=== PATIENT | male | born 1985 | race Caucasian/White ===

== ENCOUNTER 2020-06-08 00:56 | Inpatient (IN) ==
[2020-06-08 02:06] LABS: Appearance Urine Clear (Clear); Bilirubin Urine Negative (Negative); Blood Urine Negative (Negative); Color Urine Yellow; Glucose Urine UA Negative (Negative); Ketones Urine Negative (Negative); Leukocyte Esterase Urine Negative (Negative); Nitrite Urine Negative (Negative); Protein Urine Negative (Negative); Specific Gravity Urine <= 1.005 (1.000-1.030); Urobilinogen Urine Negative (Negative); pH Urine 5.5 (4.5-7.5)
[2020-06-08 02:14] LABS: Basophils # (auto) 0.02 K/uL (0-0.2); Basophils % (auto) 0.3 %; Eosinophils # (auto) 0.12 K/uL (0-0.5); Eosinophils % (auto) 1.6 %; Hematocrit (blood only) 43.9 % (42-52); Hemoglobin 15.1 g/dL (14.0-18.0); Immature Granulocytes # (auto) 0.01 K/uL (0.00-0.02); Immature Granulocytes % (auto) 0.1 %; Lymphocytes # (auto) 3.13 K/uL (1.2-3.4); Lymphocytes % (auto) 42.8 %; Mean Corpuscular Hemoglobin 32.6 pg (25-34); Mean Corpuscular Hgb Conc 34.4 g/dL (32-36); Mean Corpuscular Volume 94.8 fL (80-100); Mean Platelet Volume 8.7 fL (7.4-10.4); Monocytes # (auto) 0.86 K/uL (0.11-0.59); Monocytes % (auto) 11.7 %; Neutrophils # (auto) 3.18 K/uL (1.4-6.5); Neutrophils % (auto) 43.5 %; Platelet Count 263 K/uL (130-400); RDW Coefficient of Variation 14.2 % (11.5-14.5); RDW Standard Deviation 48.8 fL (36.4-46.3); Red Blood Count 4.63 M/uL (4.7-6.1); White Blood Count 7.32 K/uL (4.8-10.8)
--- NOTE | 2020-06-08 02:21 | Emergency Department Note ---
Impression & Plan Suicide attempt, Drug overdose, intentional, Alcohol intoxication ED Provider Note NAME: NAOMI CHAVEZ AGE: 35 SEX: M ARRIVES VIA: Ambulance INFORMANT: Patient ED PROVIDER(S): Zoraida Waters DO CHIEF COMPLAINT: Suicide attempt PLAN: Disposition: The case was signed out to Dr. Potts at change of shift awaiting evaluation by the ED psychiatric nurse outreach case manager Condition: Good MEDICAL DECISION MAKING: This is a 35-year-old male patient who presents to the emergency department after taking an overdose in an attempt to harm himself. 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 He drank a large amount of vodka took a handful of Benadryl along with his usual dose of Ativan in an effort to kill himself. The patient's alcohol level was greater than 200. Observation began at 0105 and was necessary in order for the patient to become more sober and to preclude an unnecessary admission. Upon reevaluation, observation revealed that the patient was more sober and could be evaluated from a psychiatric standpoint. He has a past medical history of HTN, Patient was discharged from observation at 645. Triage Nursing notes reviewed and agree them. Vital Signs: reviewed and remarkable for tachycardia Differential diagnosis: Alcohol intoxication, mood disorder, suicide attempt, alcoholism Laboratory studies: See below HPI: 35/M arrives for evaluation of suicide attempt. This is a 35-year-old male patient with a history of alcohol abuse and previous suicide attempts who presents to the emergency department after taking a handful of Benadryl after drinking a large amount of alcohol in an effort to hurt himself. Patient admits that he had a fight with his girlfriend vida and was feeling suicidal. ROS: See above HPI for pertinent positives & negatives. A total of 10 systems reviewed and were otherwise negative. 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 Extraocular eye muscles are intact, and sclera are anicteric. Nose - moist nasal mucosa without discharge. Mouth - moist buccal mucosa. Oropharynx is nonerythematous and there is no tonsillar exudate or edema noted. Neck: Supple; no JVD, nuchal rigidity, cervical lymphadenopathy, or auscultated bruits. Heart: Tachycardic rate and rhythm. There is a normal S1 and S2 with no murmurs, clicks, or gallops appreciated. Lungs: Clear to auscultation bilaterally with no wheezes, rales, or rhonchi. Abdomen: Soft, completely nontender, nondistended, with good bowel sounds. There are no palpable pulsatile masses or hepatosplenomegaly. There is no guarding, rigidity, or rebound noted. Extremities: No evidence of cyanosis, clubbing, or edema. There are easily palpable peripheral pulses. Skin: warm and dry with good turgor and no rashes. Psych: The patient admits to drinking a large amount of alcohol and taking an overdose of Benadryl in an effort to kill himself. He admits to previous suicide attempts. ED COURSE: Times/Reassessments: 0105: Patient was evaluated in room A2. 0240: I reevaluated the patient at this time and he was up to the bathroom. I explained to him that his blood alcohol level was quite elevated and that he would need to sober up some before he could be evaluated by the ED psychiatric nurse outreach case manager. 0505: The patient was sound asleep at this time and is hemodynamically stable 0645: Patient was reevaluated at this time. He is awake and appears more sober. Zoraida Waters DO Past Med/Surg History Social History Smoking Status: Current every day smoker Allergies Allergies Allergy/AdvReac Type Severity Reaction Status Date / Time No Known Allergies Allergy Unverified 06/08/20 01:34 Home Meds Home Medications Medication Instructions Recorded Confirmed citalopram [Celexa] 10 mg PO DAILY 06/08/20 06/08/20 lorazepam [Ativan] 0.5 mg PO DAILY 06/08/20 06/08/20 Results & Data (ED) Vital Signs Vital Signs - 24 hr 06/08/20 01:07 06/08/20 01:30 06/08/20 02:44 Temperature 36.7 C Temperature Source Oral Pulse Rate 96 H 92 H 98 H Pulse Rate [Left Finger] Pulse Rate from SpO2 Sensor 92 H Pulse Rhythm [Left Finger] Pulse Strength [Left Finger] Respiratory Rate 16 16 15 Respiratory Effort / Characteristics Non-Labored Respiratory Depth Normal Respiratory Pattern Regular Blood Pressure 154/95 H 124/86 Blood Pressure [Left Arm] Blood Pressure Mean 114 96 Blood Pressure Mean [Left Arm] Blood Pressure Position [Left Arm] Pulse Oximetry 98 98 Oxygen Delivery Method Room Air Room Air Sepsis Recent Fever Within 48 Hours No Sepsis New/Unexplained Change in Mental Status No Sepsis Action Taken by Nursing No Action Required 06/08/20 03:00 06/08/20 03:01 06/08/20 03:30 Temperature Temperature Source Pulse Rate 89 91 H 93 H Pulse Rate [Left Finger] Pulse Rate from SpO2 Sensor Pulse Rhythm [Left Finger] Pulse Strength [Left Finger] Respiratory Rate 16 14 14 Respiratory Effort / Characteristics Respiratory Depth Respiratory Pattern Blood Pressure 112/80 103/70 Blood Pressure [Left Arm] Blood Pressure Mean 87 75 Blood Pressure Mean [Left Arm] Blood Pressure Position [Left Arm] Pulse Oximetry Oxygen Delivery Method Sepsis Recent Fever Within 48 Hours Sepsis New/Unexplained Change in Mental Status Sepsis Action Taken by Nursing 06/08/20 03:31 06/08/20 06:19 Temperature Temperature Source Pulse Rate 93 H Pulse Rate [Left Finger] 87 Pulse Rate from SpO2 Sensor Pulse Rhythm [Left Finger] Regular Pulse Strength [Left Finger] Normal Respiratory Rate 14 18 Respiratory Effort / Characteristics Non-Labored Respiratory Depth Normal Respiratory Pattern Regular Blood Pressure Blood Pressure [Left Arm] 101/59 L Blood Pressure Mean Blood Pressure Mean [Left Arm] 73 Blood Pressure Position [Left Arm] Lying Pulse Oximetry 96 Oxygen Delivery Method Room Air Sepsis Recent Fever Within 48 Hours Sepsis New/Unexplained Change in Mental Status Sepsis Action Taken by Nursing Laboratory Data Result diagrams: 06/08/20 02:01 06/08/20 02:01 Lab Results 06/08/20 06/08/20 06/08/20 Range/Units 01:00 01:00 02:01 WBC 7.32 (4.8-10.8) K/uL RBC 4.63 L (4.7-6.1) M/uL Hgb 15.1 (14.0-18.0) g/dL Hct 43.9 (42-52) % MCV 94.8 (80-100) fL MCH 32.6 (25-34) pg MCHC 34.4 (32-36) g/dL RDW Std Deviation 48.8 H (36.4-46.3) fL RDW Coeff of Ele 14.2 (11.5-14.5) % Plt Count 263 (130-400) K/uL MPV 8.7 (7.4-10.4) fL Immature Gran % (Auto) 0.1 % Neut % (Auto) 43.5 % Lymph % (Auto) 42.8 % [place] % (Auto) 11.7 % Eos % (Auto) 1.6 % Baso % (Auto) 0.3 % Neut # (Auto) 3.18 (1.4-6.5) K/uL Lymph # (Auto) 3.13 (1.2-3.4) K/uL [place] # (Auto) 0.86 H (0.11-0.59) K/uL Eos # (Auto) 0.12 (0-0.5) K/uL Baso # (Auto) 0.02 (0-0.2) K/uL Immature Gran # (Auto) 0.01 (0.00-0.02) K/uL Sodium (136-145) mmol/L Potassium (3.5-5.1) mmol/L Chloride (98-107) mmol/L Carbon Dioxide (21-32) mmol/L Anion Gap (3-11) BUN (7-18) mg/dl Creatinine (0.6-1.4) mg/dl Est Cr Clr Drug Dosing ml/min Est GFR ( Amer) Est GFR (Non-Af Amer) BUN/Creatinine Ratio (10-20) Glucose (70-99) mg/dl Calcium (8.5-10.1) mg/dl Total Bilirubin (0.2-1) mg/dl AST (15-37) U/L ALT (12-78) U/L Alkaline Phosphatase (45-117) U/L Total Protein (6.4-8.2) gm/dl Albumin (3.4-5.0) gm/dl Globulin (2.5-4.0) gm/dl Albumin/Globulin Ratio (0.9-2) TSH (0.300-4.500) uIu/ml Urine Color Yellow Urine Appearance Clear (Clear) Urine pH 5.5 (4.5-7.5) Ur Specific [place] <= 1.005 (1.000-1.030) Urine Protein Negative (Negative) Urine Glucose (UA) Negative (Negative) Urine Ketones Negative (Negative) Urine Blood Negative (Negative) Urine Nitrite Negative (Negative) Urine Bilirubin Negative (Negative) Urine Urobilinogen Negative (Negative) Ur Leukocyte Esterase Negative (Negative) Salicylates (2.8-20) mg/dl Urine Opiates Screen Neg (Neg) Ur Methadone, Qual Neg (Neg) Acetaminophen (10-30) ug/ml Urine Barbiturates Neg (Neg) Ur Phencyclidine (PCP) Neg (Neg) U Amphetamin/Meth Scrn Neg (Neg) MDMA (Ecstasy) Screen Neg (Neg) U Benzodiazepines Scrn Neg (Neg) Ur Cocaine Metabolite Neg (Neg) U Marijuana (THC) Screen Neg (Neg) Ethyl Alcohol mg/dL (0-3) mg/dl 06/08/20 06/08/20 06/08/20 Range/Units 02:01 02:01 02:01 WBC (4.8-10.8) K/uL RBC (4.7-6.1) M/uL Hgb (14.0-18.0) g/dL Hct (42-52) % MCV (80-100) fL MCH (25-34) pg MCHC (32-36) g/dL RDW Std Deviation (36.4-46.3) fL RDW Coeff of Ele (11.5-14.5) % Plt Count (130-400) K/uL MPV (7.4-10.4) fL Immature Gran % (Auto) % Neut % (Auto) % Lymph % (Auto) % [place] % (Auto) % Eos % (Auto) % Baso % (Auto) % Neut # (Auto) (1.4-6.5) K/uL Lymph # (Auto) (1.2-3.4) K/uL [place] # (Auto) (0.11-0.59) K/uL Eos # (Auto) (0-0.5) K/uL Baso # (Auto) (0-0.2) K/uL Immature Gran # (Auto) (0.00-0.02) K/uL Sodium 142 (136-145) mmol/L Potassium 3.8 (3.5-5.1) mmol/L Chloride 109 H (98-107) mmol/L Carbon Dioxide 28 (21-32) mmol/L Anion Gap 5.0 (3-11) BUN 8 (7-18) mg/dl Creatinine 0.88 (0.6-1.4) mg/dl Est Cr Clr Drug Dosing 108.5 ml/min Est GFR ( Amer) 128.1 Est GFR (Non-Af Amer) 110.5 BUN/Creatinine Ratio 9.2 L (10-20) Glucose 89 (70-99) mg/dl Calcium 8.7 (8.5-10.1) mg/dl Total Bilirubin 0.2 (0.2-1) mg/dl AST 27 (15-37) U/L ALT 44 (12-78) U/L Alkaline Phosphatase 75 (45-117) U/L Total Protein 8.2 (6.4-8.2) gm/dl Albumin 3.7 (3.4-5.0) gm/dl Globulin 4.5 H (2.5-4.0) gm/dl Albumin/Globulin Ratio 0.8 L (0.9-2) TSH 2.510 (0.300-4.500) uIu/ml Urine Color Urine Appearance (Clear) Urine pH (4.5-7.5) Ur Specific [place] (1.000-1.030) Urine Protein (Negative) Urine Glucose (UA) (Negative) Urine Ketones (Negative) Urine Blood (Negative) Urine Nitrite (Negative) Urine Bilirubin (Negative) Urine Urobilinogen (Negative) Ur Leukocyte Esterase (Negative) Salicylates 4.6 (2.8-20) mg/dl Urine Opiates Screen (Neg) Ur Methadone, Qual (Neg) Acetaminophen < 2 L (10-30) ug/ml Urine Barbiturates (Neg) Ur Phencyclidine (PCP) (Neg) U Amphetamin/Meth Scrn (Neg) MDMA (Ecstasy) Screen (Neg) U Benzodiazepines Scrn (Neg) Ur Cocaine Metabolite (Neg) U Marijuana (THC) Screen (Neg) Ethyl Alcohol mg/dL 234.0 H (0-3) mg/dl Discharge Plan Visit Data Chief Complaint: Overdose (Intentional) Stated Complaint: OVERDOSE ED Provider: Zoraida Waters Discharge Problem: Suicide attempt, Drug overdose, intentional, Alcohol intoxication Forms Stand Alone Forms: My [facility], Suicide Prevention Resources Prescriptions Prescriptions: No Action citalopram [Celexa] 10 mg Tablet 10 mg PO DAILY RF: 0 lorazepam [Ativan] 0.5 mg Tablet 0.5 mg PO DAILY RF: 0 Discharge Problem: Drug overdose, intentional Qualifiers: Encounter type: initial encounter Qualified Code(s): T50.902A - Poisoning by unspecified drugs, medicaments and biological substances, intentional self-harm, initial encounter Alcohol intoxication Qualifiers: Complication of substance-induced condition: uncomplicated Qualified Code(s): F10.920 - Alcohol use, unspecified with intoxication, uncomplicated
[2020-06-08 02:26] LABS: Amphetamines+Metham, Urine Neg (Neg); Barbiturates, Urine Neg (Neg); Benzodiazepine, Urine Neg (Neg); Cocaine, Urine Neg (Neg); MDMA (Ecstacy), Urine Neg (Neg); Methadone, Urine Neg (Neg); Opiate, Urine Neg (Neg); Phencyclidine, Urine Neg (Neg)
[2020-06-08 02:35] LABS: Albumin Level 3.7 gm/dl (3.4-5.0); BUN Creatinine Ratio 9.2 (10-20); Calcium 8.7 mg/dl (8.5-10.1); Creatinine Clr Calc Pharmacy 108.5 ml/min; Est GFR (African American) 128.1; Est GFR (Non-African American) 110.5; Potassium 3.8 mmol/L (3.5-5.1)
[2020-06-08 02:46] LABS: Albumin Globulin Ratio 0.8 (0.9-2); Bilirubin,Total 0.2 mg/dl (0.2-1); Globulin 4.5 gm/dl (2.5-4.0); Thyroid Stimulating Hormone 2.51 uIu/ml (0.300-4.500); Total Protein 8.2 gm/dl (6.4-8.2)
[2020-06-08 02:52] LABS: Acetaminophen < 2 ug/ml (10-30); Salicylate 4.6 mg/dl (2.8-20)
[2020-06-08] MEDS: CITALOPRAM 20 MG TAB PO SCH (08:32)
[2020-06-08] MEDS ORDERED: MAGNESIUM HYDROXIDE SUSP 30 ML UDC PO PRN (09:57)
[2020-06-08] MEDS ORDERED: BISMUTH SUBSALICYLATE PER ML OMNICELL CHARGE PO PRN (09:57)
[2020-06-08] MEDS ORDERED: ACETAMINOPHEN 325 MG TAB PO PRN (09:57)
[2020-06-08] MEDS ORDERED: ALUMINUM/MAGNESIUM SUSP 30 ML UDC PO PRN (09:57)
[2020-06-08] MEDS ORDERED: SODIUM CHLORIDE 0.65% NA SOLN 45 ML (OCEAN) PRN (09:57)
--- NOTE | 2020-06-08 10:10 | Emergency Department Note ---
ED Visit Note The patient was signed out to me as a voluntary admission to the mental health unit. The patient was accepted at 3 S. here in the hospital. No issues during his morning stay here in the ED. . : Drug overdose, intentional Qualifiers: Encounter type: initial encounter Qualified Code(s): T50.902A - Poisoning by unspecified drugs, medicaments and biological substances, intentional self-harm, initial encounter Alcohol intoxication Qualifiers: Complication of substance-induced condition: uncomplicated Qualified Code(s): F10.920 - Alcohol use, unspecified with intoxication, uncomplicated
[2020-06-08] MEDS: NICOTINE 21 MG/24 HR TDSY TD SCH (12:02)
--- NOTE | 2020-06-08 12:37 | Electrocardiogram Report ---
Test Reason : Blood Pressure : / mmHG Vent. Rate : 091 BPM Atrial Rate : 091 BPM P-R Int : 134 ms QRS Dur : 084 ms QT Int : 342 ms P-R-T Axes : 066 062 045 degrees QTc Int : 420 ms Normal sinus rhythm with sinus arrhythmia Normal ECG No previous ECGs available Confirmed by Kenyon Greenfield ([id number]) on 06/08/2020 12:36:59 PM Referred By: REFERRED SELF Confirmed By:Kenyon Greenfield
[2020-06-08] MEDS: NICOTINE POLACRILEX 2 MG GUM MT PRN ×2 (17:24→21:10)
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
[2020-06-09] MEDS: CITALOPRAM 20 MG TAB PO SCH (09:05)
[2020-06-09] MEDS: NICOTINE 21 MG/24 HR TDSY TD SCH (09:06)
[2020-06-09] MEDS: NICOTINE POLACRILEX 2 MG GUM MT PRN ×4 (09:10→19:50)
[2020-06-09] MEDS ORDERED: CITALOPRAM 20 MG TAB PO ONE (12:15)
[2020-06-09] MEDS: LORazepam 1 MG TAB PO PRN (13:58)
[2020-06-10] MEDS ORDERED: CITALOPRAM 20 MG TAB PO SCH (09:00)
[2020-06-10] MEDS: NICOTINE POLACRILEX 2 MG GUM MT PRN ×5 (09:06→21:51)
[2020-06-10] MEDS: NICOTINE 21 MG/24 HR TDSY TD SCH (09:07)
[2020-06-10] MEDS: LORazepam 1 MG TAB PO PRN (13:09)
--- NOTE | 2020-06-10 14:29 | Psychiatric Progress Note ---
Date of Service June 10, 2020 Impression / Recommendations Impression 35-year-old male with a history of alcoholism, depression, and anxiety who presents after a suicide attempt by overdose on Benadryl while intoxicated, after an argument with his girlfriend. He was recently fired from his job, and has been drinking daily and heavily for months. He rees a history of alcohol withdrawal and rehab several years ago, but only maintain sobriety for a few months. Collateral information from his girlfriend will be important, as he is not a reliable historian and has given inconsistent report. Inpatient treatment is medically necessary due to the severity of symptoms and risk for suicide if discharged. (1) Depression: 06/09 -patient reports that mood symptoms were actually improving prior to the fight with his girlfriend, but will get collateral from her to better understand recent moods. -Increase citalopram to target mood and anxiety symptoms as below. -Coordinate care with Dr. Rodriguez at [facility]; called his clinic to provide information regarding circumstances of patient's admission and discontinuation of Ativan prescription given alcoholism, and will send records. 06/10 - Will titrate citalopram to 30mg tomorrow morning, as patient is tolerating the medication - Aftercare appointments arranged with [facility] for therapy - Potentially difficult family meeting tomorrow with girlfriend - patient is unsure if she will want to continue the relationship - Continue to encourage participation in group and recreational programming (2) Anxiety: 06/09 -endorses symptoms consistent with generalized anxiety disorder and driving phobia. Increase citalopram to 20 mg daily as patient reports ongoing daily anxiety, and titrate to an effective dose. -Recommend outpatient therapy. -Offer hydroxyzine as needed while here. Avoid use of controlled substances given the high risk of abuse/misuse/negative outcomes. 06/10 - Pt requested information regarding recommendations for use of lorazepam on discharge. Explanation provided that while we are using the medication to manage withdrawal symptoms, it is not likely we will recommend use on discharge. - Explained recommendation that patient demonstrate commitment to sobriety, as it is likely this will need to be established before a prescriber will be willing to consider ordering the medication for regular use in the future. - Pt verbalized understanding of this reasoning (3) Alcohol dependence: 06/09 -continue AWSS withdrawal protocol with Ativan as needed for withdrawal symptoms. -Recovery protocol. -Family meeting with girlfriend, including discussion of need to remove all alcohol from the home and work towards sobriety. Brief intervention was offered and accepted Intervention was greater than 5 min in length. Brief interventions include: 1. Assess Readiness to Quit, 2. Advise: Help Patient to Reduce or Abstain from Alcohol, 3. Agree: Set Specific, Feasible Goals, 4. Assist: Anticipate barriers, Problem-Solving Solutions. Social work to 5. Arrange: Referrals to appropriate treatment. Summary of intervention: The patient is in contemplation stage with regards to transtheoretical model of change. The patient is advised to decrease alcohol consumption due to depressant effects and risk of interactions with prescription medications. The patient agreed to referral to [facility] and return to , and will be provided with recovery materials to continue to education self on how to cope with their condition without drinking. Risk Factors Assessment Male: Yes : Yes Mental Health Diagnoses: Yes Substance Use Disorders: Yes Previous Attempt: Yes Family History of Suicide: No Previous Psychiatric Hospitalization: No Hopelessness: Yes Smoker: Yes Protective Factors Assessment : No Responsible for Young Children: Yes Employed: No Stable Relationships: Yes Interval History Identifying Information NAOMI CHAVEZ is a 35-year-old M who currently lives in [place] with his girlfriend, has a history of alcohol dependence, depression, and anxiety, and was admitted on 06/08/20 09:58 on a 201 voluntary commitment for depression and suicidality. Chief Complaint "Groggy, dizzy, and shaky." Review of Systems Notes Constitutional: "groggy, dizzy, and shaky" Cardiovascular: denied Respiratory: denied Gastrointestinal: denied Neurological: denied Psychiatric: denies symptoms other than stated above Total of at least 10 systems reviewed, pertinent positives as above and in HPI. Sleep Information Total Hours of Sleep: 7.5 Meal Information Percent Meal Consumed - Breakfast: 90 Percent Meal Consumed - Lunch: 100 Percent Meal Consumed - Dinner: 100 Subjective Subjective Patient was seen & assessed and interval progress reviewed with treatment team. Staff report the patient rated his mood a 5/10 and "anxious" last evening. He has been receiving occasional lorazepam per [facility] alcohol withdrawal protocol. Pt has a family meeting scheduled with girlfriend tomorrow via phone. Pt was seen today to assess progress since admission. Pt states he is feeling "groggy, dizzy, and shaky." We discussed AWSS protocol and withdrawal management here on the unit. He also admits he is anxious about his family meeting tomorrow, which he thinks may be contributing. Pt reports he is benefitting from treatment thus far "It's good. I really like it." Pt states he has been enjoying groups and feels there have been numerous helpful group discussions. Pt admits his mood remains low and he is agreeable with further titration of citalopram. Pt states "even during times of long sobriety, I've struggled with my mood in the past. I've always needed an antidepressant medication, even when I'm not drinking. He denied feeling as though any physical symptoms were related to medication side effects. Pt denies SI presently. We did take some time discussing best and worst case scenarios for his meeting tomorrow. Pt did state "I haven't even thought about the best case...I guess I'm worried the relationship will be over, without me having a chance to explain anything." Pt admits it will be difficult to hear this news, but states "I guess I'll have to find a way to move on." He denied additional needs at this time. Physical Exam Psychiatric Orientation: alert, oriented x 3 and cooperative Apperance: appropriately dressed, appropriately groomed (hygiene is appropriate, hair appearing mildly unkempt) and appeared stated age Eye Contact: good eye contact Motor Behavior: steady gait and station and no abnormal motor movements Speech: normal rate/rhythm/volume of speech Affect: + anxious affect and mood congruent with affect Mood: + depressed mood and + anxious mood ("really nervous") Thought Process: goal directed thought process and clear/coherent thought process Thought Content: reality based without delusions; no hopelessness and no worthlessness Suicidal Thoughts: denies suicidal thoughts, denies suicidal plan and denies suicidal intent Homicidal Thoughts: denies homicidal thoughts Hallucinations: no auditory hallucinations and no visual hallucinations Cognition: recent memory grossly intact, attention grossly intact and language grossly intact Estimated Intelligence: consistent with education level Insight: + fair insight Judgement: + fair judgement Vital Signs (Past 24 Hours) Last Vital Signs Temp 37.4 C 06/10/20 13:05 Pulse 75 06/10/20 13:05 Resp 16 06/10/20 13:05 BP 148/96 H 06/10/20 13:05 Pulse Ox 98 06/08/20 10:16 Results & Data ([facility]) Current Inpatient Medications Current Inpatient Medications: Current Inpatient Medications Acetaminophen (Acetaminophen 325 Mg Tab) 650 mg PO Q4H PRN PRN Reason: Headache or Minor Fever Stop: 07/08/20 09:56 Al Hydrox/Mg Hydrox/Simethicone (Aluminum/Magnesium Susp 30 Ml Udc) 30 ml PO Q4H PRN PRN Reason: GI Upset Stop: 07/08/20 09:56 Bismuth Subsalicylate (Bismuth Subsalicylate Per Ml [employer] Charge) 15 ml PO PRN PRN PRN Reason: Loose Stool Stop: 07/08/20 09:56 Citalopram Hydrobromide (Citalopram 20 Mg Tab) 20 mg PO DAILY [facility] Stop: 07/10/20 08:59 Last Admin: 06/10/20 09:06 Dose: 20 mg Documented by: Hydroxyzine HCl (Hydroxyzine Hcl 25 Mg Tab) 50 mg PO HSZ PRN PRN Reason: Insomnia Stop: 07/08/20 09:56 Last Admin: 06/09/20 21:08 Dose: 50 mg Documented by: Hydroxyzine HCl (Hydroxyzine Hcl 25 Mg Tab) 25 mg PO Q4H PRN PRN Reason: Anxiety Stop: 07/08/20 09:56 Last Admin: 06/10/20 11:23 Dose: 25 mg Documented by: Lorazepam (Lorazepam 1 Mg Tab) 1 - 3 mg PO UD PRN; Protocol PRN Reason: EtoH Withdrawal AWSS 6-10+ Stop: 07/08/20 10:39 Last Admin: 06/10/20 13:09 Dose: 1 mg Documented by: Magnesium Hydroxide (Magnesium Hydroxide Susp 30 Ml Udc) 30 ml PO DAILY PRN PRN Reason: Constipation Stop: 07/08/20 09:56 Miscellaneous (Remove Nicoderm Patch) 1 ea N/A DAILY@0859 [facility] Stop: 07/09/20 08:58 Last Admin: 06/10/20 09:07 Dose: 1 ea Documented by: Nicotine (Nicotine 21 Mg/24 Hr Tdsy) 21 mg TD QAM [facility] Stop: 07/08/20 10:44 Last Admin: 06/10/20 09:07 Dose: 21 mg Documented by: Nicotine Polacrilex (Nicotine Polacrilex 2 Mg Gum) 2 piece MT PRN PRN PRN Reason: Nicotine Withdrawal Stop: 07/08/20 10:37 Last Admin: 06/10/20 14:02 Dose: 2 piece Documented by: Sodium Chloride (Sodium Chloride 0.65% Na Soln 45 Ml ([place])) 1 - 2 sprays NA PRN PRN PRN Reason: Nasal Dryness/Congestion Stop: 07/08/20 09:56 Mental Health & Subst Abuse Tx Psychiatrist Name of Psychiatrist: Lorenzo Morgan - Dr. Rodriguez Psychiatrist's Date of Appointment with Psychiatrist: 06/17/20 Time of Appointment with Psychiatrist: 9:00 a.m. Psychiatric Appointment Comment: [address], [address], [place], [address] Therapist Name of Therapist: Lorenzo Haines Therapist's Date of Therapist Appointment: 06/22/20 Time of Therapist Appointment: 10:00 a.m. Therapy Appointment Comment: [address], [address], [place], [address] Post Discharge Appointments Other #1: Name of Aftercare Appointment: Michael Hernandez Phone Number of Aftercare Appointment: [phone] Date of Aftercare Appointment: 06/15/20 Time of Aftercare Appointment: 12:00 p.m. Aftercare Appointment Comment: Telehealth
[2020-06-11] MEDS: NICOTINE 21 MG/24 HR TDSY TD SCH (08:53)
[2020-06-11] MEDS: CITALOPRAM 20 MG TAB PO SCH (08:54)
[2020-06-11] MEDS: NICOTINE POLACRILEX 2 MG GUM MT PRN ×5 (09:55→21:54)
--- NOTE | 2020-06-11 11:21 | Psychiatric Progress Note ---
Date of Service June 11, 2020 Impression / Recommendations Impression 35-year-old male with a history of alcoholism, depression, and anxiety who presents after a suicide attempt by overdose on Benadryl while intoxicated, after an argument with his girlfriend. He was recently fired from his job, and has been drinking daily and heavily for months. He rees a history of alcohol withdrawal and rehab several years ago, but only maintain sobriety for a few months. Collateral information from his girlfriend will be important, as he is not a reliable historian and has given inconsistent report. Girlfriend did end the relationship during a phone meeting. Inpatient treatment is medically necessary due to the severity of symptoms and risk for suicide if discharged. (1) Depression: 06/09 -patient reports that mood symptoms were actually improving prior to the fight with his girlfriend, but will get collateral from her to better understand recent moods. -Increase citalopram to target mood and anxiety symptoms as below. -Coordinate care with Dr. Rodriguez at [email or web address]; called his clinic to provide information regarding circumstances of patient's admission and discontinuation of Ativan prescription given alcoholism, and will send records. 06/10 - Will titrate citalopram to 30mg tomorrow morning, as patient is tolerating the medication - Aftercare appointments arranged with [facility] and [facility] for therapy - Potentially difficult family meeting tomorrow with girlfriend - patient is unsure if she will want to continue the relationship - Continue to encourage participation in group and recreational programming 06/11 - Continue citalopram 30mg daily - Aftercare arrangements in place - Family meeting held yesterday - girlfriend ended relationship and is declining further contact with patient. Parents will assist with getting patient's belongings from her home - Will continue admission to allow patient to process the end of the relationship and ensure stability of mood (2) Anxiety: 06/09 -endorses symptoms consistent with generalized anxiety disorder and driving phobia. Increase citalopram to 20 mg daily as patient reports ongoing daily anxiety, and titrate to an effective dose. -Recommend outpatient therapy. -Offer hydroxyzine as needed while here. Avoid use of controlled substances given the high risk of abuse/misuse/negative outcomes. 06/10 - Pt requested information regarding recommendations for use of lorazepam on discharge. Explanation provided that while we are using the medication to manage withdrawal symptoms, it is not likely we will recommend use on discharge. - Explained recommendation that patient demonstrate commitment to sobriety, as it is likely this will need to be established before a prescriber will be willing to consider ordering the medication for regular use in the future. - Pt verbalized understanding of this reasoning (3) Alcohol dependence: 06/09 -continue AWSS withdrawal protocol with Ativan as needed for withdrawal symptoms. -Recovery protocol. -Family meeting with girlfriend, including discussion of need to remove all alcohol from the home and work towards sobriety. Brief intervention was offered and accepted Intervention was greater than 5 min in length. Brief interventions include: 1. Assess Readiness to Quit, 2. Advise: Help Patient to Reduce or Abstain from Alcohol, 3. Agree: Set Specific, Feasible Goals, 4. Assist: Anticipate barriers, Problem-Solving Solutions. Social work to 5. Arrange: Referrals to appropriate treatment. Summary of intervention: The patient is in contemplation stage with regards to transtheoretical model of change. The patient is advised to decrease alcohol consumption due to depressant effects and risk of interactions with prescription medications. The patient agreed to referral to [facility] and return to , and will be provided with recovery materials to continue to education self on how to cope with their condition without drinking. 06/11 - Pt receiving lower scores on AWSS protocol. Continues to encourage abstinence; however, patient remains unwilling for rehab. Risk Factors Assessment Male: Yes : Yes Mental Health Diagnoses: Yes Substance Use Disorders: Yes Previous Attempt: Yes Family History of Suicide: No Previous Psychiatric Hospitalization: No Hopelessness: Yes Smoker: Yes Protective Factors Assessment : No Responsible for Young Children: Yes Employed: No Stable Relationships: Yes Interval History Identifying Information NAOMI CHAVEZ is a 35-year-old M who currently lives in [place] with his girlfriend, has a history of alcohol dependence, depression, and anxiety, and was admitted on 06/08/20 09:58 on a 201 voluntary commitment for depression and suicidality. Chief Complaint "Good. Really good. Not bad at all." Review of Systems Notes Constitutional: denied Cardiovascular: denied Respiratory: denied Gastrointestinal: denied Neurological: denied Psychiatric: denies symptoms other than stated above Total of at least 10 systems reviewed, pertinent positives as above and in HPI. Sleep Information Total Hours of Sleep: 6.5 Meal Information Percent Meal Consumed - Breakfast: 90 Percent Meal Consumed - Lunch: 100 Percent Meal Consumed - Dinner: 60 Subjective Subjective Patient was seen & assessed and interval progress reviewed with nursing and social work. Staff report the patient has been participating in group programming and has been supportive of peers. Pt's meeting with his girlfriend was moved up, as girlfriend expressed plans to end the relationship and wanted to do so as soon as possible. Pt was seen today to assess progress since admission. Pt states he is "good. Really good. Not bad at all." Pt continued to make statements regarding progress he is making and noticeable improvement in mood. This provider did inquire about his family meeting, as it was a bit strange that patient would say he is so good when the "worst case scenario" yesterday was that their relationship would end. Pt did admit "yeah, we broke up. But you know what? It was not always the best environment for me, there was a lot of chaos. Yesterday's meeting was pure anger and no compassion or concern, so I do think it's better." Pt states that he is excited to begin focusing on himself and his family, "it opens me up to focus on me." Pt continues to deny SI or other concerns. He is tolerating titration of citalopram to 30mg. No other needs verbalized at this time. Physical Exam Psychiatric Orientation: alert and oriented x 3 Apperance: appropriately dressed, appropriately groomed and appeared stated age Eye Contact: good eye contact Motor Behavior: steady gait and station and no abnormal motor movements Speech: normal rate/rhythm/volume of speech Affect: + blunted affect (appearing subdued, but not overtly depressed) Mood: no depressed mood ("Good, really good. Not bad at all." ) Thought Process: goal directed thought process and clear/coherent thought process Thought Content: + cognitive distortions (likely related to substance abuse history ) Suicidal Thoughts: denies suicidal thoughts and denies suicidal intent Homicidal Thoughts: denies homicidal thoughts Hallucinations: no auditory hallucinations and no visual hallucinations Cognition: recent memory grossly intact, attention grossly intact and language grossly intact Estimated Intelligence: consistent with education level Insight: + fair insight Judgement: + fair judgement Vital Signs (Past 24 Hours) Last Vital Signs Temp 36.9 C 06/11/20 08:04 Pulse 80 06/11/20 08:04 Resp 16 06/11/20 08:04 BP 111/73 06/11/20 08:04 Pulse Ox 98 06/08/20 10:16 Results & Data ([facility]) Current Inpatient Medications Current Inpatient Medications: Current Inpatient Medications Acetaminophen (Acetaminophen 325 Mg Tab) 650 mg PO Q4H PRN PRN Reason: Headache or Minor Fever Stop: 07/08/20 09:56 Al Hydrox/Mg Hydrox/Simethicone (Aluminum/Magnesium Susp 30 Ml Udc) 30 ml PO Q4H PRN PRN Reason: GI Upset Stop: 07/08/20 09:56 Bismuth Subsalicylate (Bismuth Subsalicylate Per Ml [facility]nic[facility] Charge) 15 ml PO PRN PRN PRN Reason: Loose Stool Stop: 07/08/20 09:56 Citalopram Hydrobromide (Citalopram 20 Mg Tab) 30 mg PO DAILY [facility] Stop: 07/11/20 08:59 Last Admin: 06/11/20 08:54 Dose: 30 mg Documented by: Hydroxyzine HCl (Hydroxyzine Hcl 25 Mg Tab) 50 mg PO HSZ PRN PRN Reason: Insomnia Stop: 07/08/20 09:56 Last Admin: 06/10/20 21:53 Dose: 50 mg Documented by: Hydroxyzine HCl (Hydroxyzine Hcl 25 Mg Tab) 25 mg PO Q4H PRN PRN Reason: Anxiety Stop: 07/08/20 09:56 Last Admin: 06/10/20 17:10 Dose: 25 mg Documented by: Lorazepam (Lorazepam 1 Mg Tab) 1 - 3 mg PO UD PRN; Protocol PRN Reason: EtoH Withdrawal AWSS 6-10+ Stop: 07/08/20 10:39 Last Admin: 06/10/20 13:09 Dose: 1 mg Documented by: Magnesium Hydroxide (Magnesium Hydroxide Susp 30 Ml Udc) 30 ml PO DAILY PRN PRN Reason: Constipation Stop: 07/08/20 09:56 Miscellaneous (Remove Nicoderm Patch) 1 ea N/A DAILY@[id number] [facility] Stop: 07/09/20 08:58 Last Admin: 06/11/20 08:55 Dose: 1 ea Documented by: Nicotine (Nicotine 21 Mg/24 Hr Tdsy) 21 mg TD QAM [facility] Stop: 07/08/20 10:44 Last Admin: 06/11/20 08:53 Dose: 21 mg Documented by: Nicotine Polacrilex (Nicotine Polacrilex 2 Mg Gum) 2 piece MT PRN PRN PRN Reason: Nicotine Withdrawal Stop: 07/08/20 10:37 Last Admin: 06/11/20 09:55 Dose: 2 piece Documented by: Sodium Chloride (Sodium Chloride 0.65% Na Soln 45 Ml ([place])) 1 - 2 sprays NA PRN PRN PRN Reason: Nasal Dryness/Congestion Stop: 07/08/20 09:56 Mental Health & Subst Abuse Tx Psychiatrist Name of Psychiatrist: Lorenzo Morgan - Dr. Rodriguez Psychiatrist's Date of Appointment with Psychiatrist: 06/17/20 Time of Appointment with Psychiatrist: 9:00 a.m. Psychiatric Appointment Comment: [address], [address], [place], [address] Therapist Name of Therapist: Lorenzo Haines Therapist's Date of Therapist Appointment: 06/22/20 Time of Therapist Appointment: 10:00 a.m. Therapy Appointment Comment: [address], [address], [place], [address] Post Discharge Appointments Other #1: Name of Aftercare Appointment: Michael Hernandez Phone Number of Aftercare Appointment: [phone] Date of Aftercare Appointment: 06/15/20 Time of Aftercare Appointment: 12:00 p.m. Aftercare Appointment Comment: Telehealth Contact Information Discharge
[2020-06-12] MEDS: CITALOPRAM 20 MG TAB PO SCH (08:55)
[2020-06-12] MEDS: NICOTINE 21 MG/24 HR TDSY TD SCH (08:55)
[2020-06-12] MEDS: NICOTINE POLACRILEX 2 MG GUM MT PRN (09:58)
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
== END 2020-06-12 12:20 | disposition home or self-care (01) | DRG 881 ==
LOC: ED 00:56 → 3S 09:58